=== PATIENT | female | born 1945 | race Two or more races ===

== ENCOUNTER 2022-05-30 07:08 | Day surgery (SDC) | payer OTHER ==
[~2022-05-30] VITALS: Ht 167.6 cm; Wt 58.1 kg
[~2022-05-30 07:08] MED LIST: ALBUAER3 IN; APIX5TAB PO; BUSP10TA31 PO; LEVO125T7 PO; LISI20TA28 PO; METO25TA5 PO; SIMV-8 PO; TRAZ-184 PO
[2022-05-30] MEDS ORDERED: fentaNYL CITRATE 100 MCG/2 ML VL IV ONE (07:45)
[2022-05-30] MEDS ORDERED: MIDAZOLAM HCL 2MG/2ML 2ml VIAL (1mg/ml) IV ONE (07:45)
[2022-05-30] MEDS ORDERED: MIDAZOLAM HCL 2MG/2ML 2ml VIAL (1mg/ml) ONE (08:14)
[2022-05-30] MEDS ORDERED: LIDOCAINE VISCOUS 2% 15ML UD ONE (08:14)
[2022-05-30] MEDS ORDERED: fentaNYL CITRATE 100 MCG/2 ML VL ONE (08:14)
[2022-05-30] MEDS: LIDOCAINE VISCOUS 2% 15ML UD MT PRN ×2 (08:17→08:45)
[2022-05-30 08:38] VITALS: BP 142/73
[2022-05-30 08:45] VITALS: BP 131/56
[2022-05-30 08:59] VITALS: BP 141/65
[2022-05-30 09:14] VITALS: BP 138/57
[2022-05-30 09:29] VITALS: BP 131/60
[2022-05-30 09:44] VITALS: BP 138/64
== END 2022-05-30 10:00 | disposition home or self-care (01) ==
LOC: CATH 07:08
PROVIDERS: ATTEND Internal Medicine Cardiovascular Disease
DX: I08.1 Rheumatic disorders of both mitral and tricuspid valves (principal); I31.39 Other pericardial effusion (noninflammatory); I70.0 Atherosclerosis of aorta; Z20.822 Contact with and (suspected) exposure to COVID-19
CPT/HCPCS: 93312; J2250; J3010; U0003; 99152

== ENCOUNTER 2022-06-03 06:57 | Day surgery (SDC) | payer OTHER ==
[~2022-06-03] VITALS: Ht 167.6 cm; Wt 58.1 kg
[2022-06-03] MEDS ORDERED: LIDOCAINE 2%HCL (LOCAL ANESTH.) INJ 20ML MDV ONE (07:33)
[2022-06-03] MEDS ORDERED: IOHEXOL 350 MG/ML 100ML IJ ONE (07:33)
[2022-06-03] MEDS ORDERED: SODIUM CHL 0.9% 0 ML ONE (07:50)
[2022-06-03] MEDS ORDERED: VERAPAMIL 2.5MG/ML INJ 2ML VIAL IV ONE (07:50)
[2022-06-03] MEDS ORDERED: fentaNYL CITRATE 100 MCG/2 ML VL ONE (07:50)
[2022-06-03] MEDS ORDERED: ANGIOMAX 250 MG VIAL IV ONE (07:50)
[2022-06-03] MEDS ORDERED: MIDAZOLAM HCL 2MG/2ML 2ml VIAL (1mg/ml) ONE (07:50)
[2022-06-03] MEDS ORDERED: HEPARIN SODIUM (PORCINE) 5000 UNITS/ML 1ML VIAL ONE (07:50)
[2022-06-03] MEDS ORDERED: diphenhdrAMINE HCL 50 MG/1 ML VL ONE (07:56)
[2022-06-03] MEDS ORDERED: FAMOTIDINE (10MG/ML) 2ML VL IV ONE (07:56)
[2022-06-03] MEDS ORDERED: methylPREDNISolone SOD SUCC 125 MG/2 ML VL ONE (07:56)
[2022-06-03] MEDS ORDERED: hydrALAZINE HCL 20 MG/ML VL ONE (08:37)
== END 2022-06-03 11:05 | disposition home or self-care (01) ==
LOC: CATH 06:57
PROVIDERS: ATTEND Internal Medicine Cardiovascular Disease
DX: R94.39 Abnormal result of other cardiovascular function study (principal); R07.89 Other chest pain; I25.10 Atherosclerotic heart disease of native coronary artery without angina pectoris; I48.91 Unspecified atrial fibrillation; F32.A Depression, unspecified; I10 Essential (primary) hypertension; E78.5 Hyperlipidemia, unspecified; E03.9 Hypothyroidism, unspecified; I73.9 Peripheral vascular disease, unspecified; I47.1 Supraventricular tachycardia; I35.0 Nonrheumatic aortic (valve) stenosis; Z79.899 Other long term (current) drug therapy; Z79.01 Long term (current) use of anticoagulants; Z98.890 Other specified postprocedural states
CPT/HCPCS: 93460; C1751; C1769; C1887; C1894; J0360; J1200; J1644; J2250; J2930; J3010; J3490; J7030; Q9967; 99152; 99153

== ENCOUNTER 2023-08-21 20:00 | Inpatient (IN) | payer OTHER ==
[~2023-08-21] VITALS: Ht 165.1 cm; Wt 60.0 kg
[~2023-08-21 20:00] MED LIST changes: -LISI20TA28 PO; +LISI20TA56 PO; -SIMV-8 PO; +SIMV20TA20 PO
[2023-08-21 22:03] LABS: Basophils # (auto) 0 10 ^3/uL (0-0.2); Basophils % (auto) 0.5 % (0.0-2.0); Eosinophils # (auto) 0 10 ^3/uL (0-0.8); Eosinophils % (auto) 0.7 % (0.0-7.0); Hematocrit 38.7 % (36.0-46.0); Hemoglobin 12.9 g/dL (12.2-16.2); Lymphocytes # (auto) 1.5 10 ^3/uL (0.4-5.4); Mean Corpuscular Hgb Conc. 33.2 g/dL (32.0-36.0); Mean Corpuscular Volume 84.5 fL (80.0-100.0); Monocytes # (auto) 0.7 10 ^3/uL (0-1.3); Monocytes % (auto) 11.1 % (0.0-12.0); Neutrophils # (auto) 3.9 10 ^3/uL (1.6-8.6); Neutrophils % (auto) 63.7 % (37.0-80.0); Nucleated Red Blood Cells % 0.1 %; Red Blood Cells 4.59 10^6/uL (4.0-5.20)
[2023-08-21 22:25] LABS: Alanine Aminotransferase 20 U/L (7-40); Albumin 4.2 g/dL (3.2-4.8); Alkaline Phosphatase 44 U/L (46-116); Anion Gap 8 (5-15); Aspartate Aminotransferase 15 U/L (13-40); Calcium 9.8 mg/dL (8.7-10.4); Carbon Dioxide 26 mmol/L (20-30); Chloride 102 mmol/L (98-107); Glucose 108 mg/dL (74-106); Lipase 39 U/L (12-53); Potassium 3.6 mmol/L (3.5-5.1); Sodium 136 mmol/L (136-145); Total Protein 6.9 g/dL (5.7-8.2)
[2023-08-21 22:27] LABS: BUN/Creatinine Ratio 6.4 (10.0-20.0); Blood Urea Nitrogen < 5 mg/dL (9-23)
[2023-08-21] MEDS: ONDANSETRON ODT 4 MG TAB PO ONE (22:50)
[2023-08-21 23:52] LABS: Urine Bacteria None Seen /hpf (None Seen)
[2023-08-22 00:01] LABS: Urine Blood Negative /uL (Negative); Urine Clarity Clear (Clear); Urine Color Light-Yellow (Yellow); Urine Protein, UAD Negative (Negative); Urine Specific Gravity 1.005 (1.001-1.035); Urine Urobilinogen Normal (Negative); Urine WBC <1 /hpf (0 - 5); Urine pH 6.5 (5.0-9.0)
[2023-08-22] MEDS ORDERED: ACETAMINOPHEN 325 MG TAB PO PRN (03:00)
[2023-08-22] MEDS ORDERED: ONDANSETRON HCL 4 MG/2 ML VIAL IV PRN (03:00)
[2023-08-22] MEDS ORDERED: MORPHINE SULFATE INJ 2 MG/ml SYRG IV PRN (03:00)
[2023-08-22] MEDS: MORPHINE SULFATE 4 MG/ML SYR/VIAL IV ONE (03:00)
[2023-08-22] MEDS ORDERED: NITROGLYCERIN 0.4 MG SL TAB SL PRN (03:00)
[2023-08-22] MEDS: ONDANSETRON HCL 4 MG/2 ML VIAL IV ONE (03:01)
[2023-08-22 03:13] VITALS: PULSE 116; RESP 21; O2SAT 92
[2023-08-22] MEDS: SODIUM CHLORIDE 0.9% 1,000 ML IV ONE (03:40)
[2023-08-22 04:33] LABS: Basophils # (auto) 0 10 ^3/uL (0-0.2); Basophils % (auto) 0.3 % (0.0-2.0); Eosinophils # (auto) 0 10 ^3/uL (0-0.8); Eosinophils % (auto) 0.7 % (0.0-7.0); Hematocrit 37.1 % (36.0-46.0); Hemoglobin 12.5 g/dL (12.2-16.2); Lymphocytes % (auto) 16.9 % (10.0-50.0); Mean Corpuscular Hemoglobin 28.8 pg (28.0-32.0); Mean Corpuscular Hgb Conc. 33.8 g/dL (32.0-36.0); Mean Corpuscular Volume 85.2 fL (80.0-100.0); Monocytes # (auto) 0.6 10 ^3/uL (0-1.3); Monocytes % (auto) 10.1 % (0.0-12.0); Neutrophils # (auto) 4.1 10 ^3/uL (1.6-8.6); Red Blood Cells 4.35 10^6/uL (4.0-5.20); Red Cell Distribution Width 14.3 % (11.8-14.3); White Blood Cell 5.7 10^3/uL (4.4-10.8)
[2023-08-22] MEDS: D5W/SOD CHLO 0.9% 1,000 ML IV ONE (04:39)
[2023-08-22 04:46] LABS: Chloride 102 mmol/L (98-107); Potassium 3.8 mmol/L (3.5-5.1); Sodium 137 mmol/L (136-145)
[2023-08-22 04:47] LABS: Anion Gap 8 (5-15); Carbon Dioxide 27 mmol/L (20-30)
[2023-08-22 04:48] LABS: Calcium 9.5 mg/dL (8.7-10.4)
[2023-08-22 04:52] LABS: Glucose 109 mg/dL (74-106)
[2023-08-22 05:10] LABS: BUN/Creatinine Ratio 7.1 (10.0-20.0); Blood Urea Nitrogen < 5 mg/dL (9-23)
[2023-08-22] MEDS ORDERED: AMIODARONE 450mg/250ml AE 250 ML IV SCH ×2 (05:15→11:15)
[2023-08-22] MEDS ORDERED: AMIODARONE BOLUS KIT 100 ML IV ONE (05:15)
[2023-08-22] MEDS: MORPHINE SULFATE INJ 2 MG/ml SYRG IV PRN (06:13)
[2023-08-22] MEDS: ENOXAPARIN SOD 40 MG/0.4 ML SYRINGE SC SCH (10:00)
[2023-08-22] MEDS: LEVOTHYROXINE SODIUM 100 MCG/5 ML INJ IV ONE (11:42)
[2023-08-22 13:03] LABS: INR 1.09 (0.9-1.15); Partial Thromboplastin Time 26.4 SEC (24.5-34.5); Prothrombin Time 11.5 sec (9.3-11.8)
[2023-08-22] MEDS: GASTROGRAFIN 120 ML SOL ONE (13:57)
[2023-08-22 19:29] VITALS: PULSE 88; RESP 12; O2SAT 96
[2023-08-23] VITALS (10 sets, daily range): BP systolic 98–149; BP diastolic 46–79; PULSE 67–130; RESP 16–18; TEMP 37; O2SAT 91–97
[2023-08-23 05:18] LABS: Basophils # (auto) 0 10 ^3/uL (0-0.2); Basophils % (auto) 0.7 % (0.0-2.0); Eosinophils # (auto) 0.1 10 ^3/uL (0-0.8); Eosinophils % (auto) 1.3 % (0.0-7.0); Hematocrit 35.1 % (36.0-46.0); Hemoglobin 11.6 g/dL (12.2-16.2); Lymphocytes # (auto) 1.2 10 ^3/uL (0.4-5.4); Lymphocytes % (auto) 21.5 % (10.0-50.0); Mean Corpuscular Hemoglobin 28.3 pg (28.0-32.0); Mean Corpuscular Volume 85.5 fL (80.0-100.0); Monocytes # (auto) 0.7 10 ^3/uL (0-1.3); Monocytes % (auto) 11.5 % (0.0-12.0); Neutrophils # (auto) 3.7 10 ^3/uL (1.6-8.6); Red Cell Distribution Width 14.6 % (11.8-14.3); White Blood Cell 5.8 10^3/uL (4.4-10.8)
[2023-08-23 05:23] LABS: Chloride 107 mmol/L (98-107); Potassium 3.6 mmol/L (3.5-5.1); Sodium 140 mmol/L (136-145)
[2023-08-23 05:24] LABS: Anion Gap 5 (5-15); Calcium 9.4 mg/dL (8.7-10.4); Carbon Dioxide 28 mmol/L (20-30)
[2023-08-23 05:29] LABS: BUN/Creatinine Ratio 7.2 (10.0-20.0); Blood Urea Nitrogen 5 mg/dL (9-23); Glucose 83 mg/dL (74-106)
[2023-08-23] MEDS: METOPROLOL TARTRATE 1MG/1ML-5ML VIAL IV PRN (08:16)
== END 2023-08-23 18:57 | disposition home or self-care (01) | DRG 389 ==
LOC: ER 20:00 → TELE 08-22 03:24 → TELE-EAST 08-22 22:02 → UNDODISIN 08-23 18:00
PROVIDERS: ADMIT Internal Medicine; ATTEND Internal Medicine
PROC: 0D9670Z Drainage of Stomach with Drainage Device, Via Natural or Artificial Opening (ICD-10-PCS; principal; 2023-08-22)
DX: K56.600 Partial intestinal obstruction, unspecified as to cause (principal); I48.20 Chronic atrial fibrillation, unspecified; K56.51 Intestinal adhesions [bands], with partial obstruction; I10 Essential (primary) hypertension; I25.10 Atherosclerotic heart disease of native coronary artery without angina pectoris; J45.909 Unspecified asthma, uncomplicated; E03.9 Hypothyroidism, unspecified; Z91.041 Radiographic dye allergy status; Z88.0 Allergy status to penicillin; Z88.2 Allergy status to sulfonamides; Z91.018 Allergy to other foods; Z90.49 Acquired absence of other specified parts of digestive tract; I25.2 Old myocardial infarction; Z79.01 Long term (current) use of anticoagulants; Z90.721 Acquired absence of ovaries, unilateral; Z90.5 Acquired absence of kidney
CPT/HCPCS: 36415; 71045; 74176; 74250; 80048; 80053; 81001; 83605; 83690; 85025; 85610; 85730; 93005; G0378; J2405; J3490

== ENCOUNTER 2023-08-24 14:59 | Inpatient (IN) | payer OTHER ==
[~2023-08-24] VITALS: Ht 165.1 cm; Wt 66.9 kg
[2023-08-24 16:28] LABS: Basophils # (auto) 0 10 ^3/uL (0-0.2); Basophils % (auto) 0.3 % (0.0-2.0); Eosinophils # (auto) 0 10 ^3/uL (0-0.8); Eosinophils % (auto) 0.2 % (0.0-7.0); Hematocrit 37.5 % (36.0-46.0); Hemoglobin 12.8 g/dL (12.2-16.2); Lymphocytes # (auto) 0.7 10 ^3/uL (0.4-5.4); Lymphocytes % (auto) 10.8 % (10.0-50.0); Mean Corpuscular Hemoglobin 28.4 pg (28.0-32.0); Mean Corpuscular Volume 83.3 fL (80.0-100.0); Monocytes # (auto) 0.6 10 ^3/uL (0-1.3); Monocytes % (auto) 8.1 % (0.0-12.0); Neutrophils # (auto) 5.5 10 ^3/uL (1.6-8.6); Neutrophils % (auto) 80.6 % (37.0-80.0); Red Cell Distribution Width 14.3 % (11.8-14.3); White Blood Cell 6.9 10^3/uL (4.4-10.8)
[2023-08-24 16:35] LABS: Alanine Aminotransferase 11 U/L (7-40); Albumin 4.3 g/dL (3.2-4.8); Alkaline Phosphatase 41 U/L (46-116); Anion Gap 7 (5-15); Aspartate Aminotransferase 23 U/L (13-40); BUN/Creatinine Ratio 13.4 (10.0-20.0); Bilirubin, Total 1.1 mg/dL (0.2-1.0); Blood Urea Nitrogen 11 mg/dL (9-23); Calcium 10.1 mg/dL (8.5-10.1); Carbon Dioxide 29 mmol/L (20-30); Chloride 98 mmol/L (98-107); Glucose 115 mg/dL (74-106); Potassium 3.6 mmol/L (3.5-5.1)
[2023-08-24 16:36] LABS: Total Protein 7.1 g/dL (5.7-8.2)
[2023-08-24 16:39] LABS: Sodium 134 mmol/L (136-145)
[2023-08-24 17:25] LABS: Urine Bacteria None Seen /hpf (None Seen)
[2023-08-24 17:31] LABS: Urine Blood Negative /uL (Negative); Urine Clarity Turbid (Clear); Urine Color Yellow (Yellow); Urine Protein, UAD TRACE (Negative); Urine Specific Gravity 1.015 (1.001-1.035); Urine Urobilinogen 2 mg/dL (Negative); Urine WBC 1 /hpf (0 - 5); Urine pH 8.5 (5.0-9.0)
[2023-08-24 22:57] LABS: INR 1.13 (0.9-1.15); Prothrombin Time 11.9 sec (9.3-11.8)
[2023-08-25] MEDS: HYDROmorphone HCL 2 MG/ML VL/or syr IM ONE (00:18)
[2023-08-25] MEDS: ONDANSETRON ODT 4 MG TAB PO ONE (00:18)
[2023-08-25] MEDS: ONDANSETRON HCL 4 MG/2 ML VIAL IV PRN (00:26)
[2023-08-25] MEDS: MORPHINE SULFATE INJ 2 MG/ml SYRG IV PRN (00:26)
[2023-08-25] MEDS: cefTRIAXone 1GM/50ML D5W 50 ML IV ONE (00:28)
[2023-08-25] MEDS: metroNIDAZOLE 500MG/100ML 100 ML IV SCH (00:28)
[2023-08-25 00:59] VITALS: PULSE 93; O2SAT 92
[2023-08-25] MEDS: D5W/SOD CHLO 0.9% 1,000 ML IV SCH (02:05)
[2023-08-25] MEDS: dilTIAZem 25 MG/5 ML VIAL IV ONE (03:08)
[2023-08-25 05:00] LABS: Basophils # (auto) 0 10 ^3/uL (0-0.2); Basophils % (auto) 0.4 % (0.0-2.0); Eosinophils # (auto) 0 10 ^3/uL (0-0.8); Eosinophils % (auto) 0.4 % (0.0-7.0); Hematocrit 38.6 % (36.0-46.0); Hemoglobin 12.9 g/dL (12.2-16.2); Lymphocytes # (auto) 1.7 10 ^3/uL (0.4-5.4); Lymphocytes % (auto) 23.4 % (10.0-50.0); Mean Corpuscular Hemoglobin 27.9 pg (28.0-32.0); Mean Corpuscular Hgb Conc. 33.5 g/dL (32.0-36.0); Mean Corpuscular Volume 83.2 fL (80.0-100.0); Monocytes # (auto) 0.9 10 ^3/uL (0-1.3); Monocytes % (auto) 11.9 % (0.0-12.0); Neutrophils # (auto) 4.7 10 ^3/uL (1.6-8.6); Neutrophils % (auto) 63.9 % (37.0-80.0); Nucleated Red Blood Cells % 0.1 %; Red Blood Cells 4.64 10^6/uL (4.0-5.20); Red Cell Distribution Width 14.2 % (11.8-14.3); White Blood Cell 7.3 10^3/uL (4.4-10.8)
[2023-08-25 05:10] LABS: Chloride 101 mmol/L (98-107); Potassium 3.3 mmol/L (3.5-5.1); Sodium 136 mmol/L (136-145)
[2023-08-25 05:11] LABS: Anion Gap 10 (5-15); Calcium 9.9 mg/dL (8.7-10.4); Carbon Dioxide 25 mmol/L (20-30)
[2023-08-25] MEDS: AMIODARONE BOLUS KIT 100 ML IV ONE (05:14)
[2023-08-25 05:16] LABS: BUN/Creatinine Ratio 11.4 (10.0-20.0); Blood Urea Nitrogen 8 mg/dL (9-23); Glucose 126 mg/dL (74-106)
[2023-08-25] MEDS: AMIODARONE 450mg/250ml AE 250 ML IV SCH ×2 (05:45→12:26)
[2023-08-25 06:04] VITALS: BP 120/73; PULSE 123; RESP 18; O2SAT 95
[2023-08-25] MEDS: ENOXAPARIN SOD 100 MG/1 ML SYRINGE SC SCH (06:11)
[2023-08-25] MEDS ORDERED: ENOXAPARIN SOD 40 MG/0.4 ML SYRINGE SC SCH (10:00)
[2023-08-25] MEDS: PANTOPRAZOLE 40 MG/10 ML VIAL INJ IV SCH (10:48)
[2023-08-25] MEDS: cefTRIAXone 1GM/50ML D5W 50 ML IV SCH (10:48)
[2023-08-25 11:41] VITALS: BP 142/88; PULSE 96; RESP 16; TEMP 98.1; O2SAT 96
[2023-08-25 16:48] VITALS: BP 171/89; PULSE 100; RESP 16; TEMP 97.9; O2SAT 96
[2023-08-25 19:30] VITALS: PULSE 90; RESP 17; O2SAT 97
[2023-08-25 21:00] VITALS: BP 158/76; PULSE 102; RESP 18; TEMP 98; O2SAT 96
[2023-08-26] VITALS (8 sets, daily range): BP systolic 103–177; BP diastolic 66–85; PULSE 64–135; RESP 16–20; TEMP 97.7–98.5; O2SAT 94–96
[2023-08-26 06:55] LABS: Chloride 105 mmol/L (98-107); Potassium 2.8 mmol/L (3.5-5.1); Sodium 140 mmol/L (136-145)
[2023-08-26 06:56] LABS: Anion Gap 9 (5-15); Carbon Dioxide 26 mmol/L (20-30)
[2023-08-26 06:57] LABS: Calcium 9.1 mg/dL (8.5-10.1)
[2023-08-26 07:01] LABS: Glucose 110 mg/dL (74-106)
[2023-08-26 07:02] LABS: Basophils # (auto) 0 10 ^3/uL (0-0.2); Basophils % (auto) 0.8 % (0.0-2.0); Eosinophils # (auto) 0.1 10 ^3/uL (0-0.8); Eosinophils % (auto) 2.5 % (0.0-7.0); Hematocrit 35.2 % (36.0-46.0); Hemoglobin 11.9 g/dL (12.2-16.2); Lymphocytes # (auto) 1.1 10 ^3/uL (0.4-5.4); Lymphocytes % (auto) 26.5 % (10.0-50.0); Mean Corpuscular Hemoglobin 28.6 pg (28.0-32.0); Mean Corpuscular Volume 84.1 fL (80.0-100.0); Monocytes # (auto) 0.5 10 ^3/uL (0-1.3); Monocytes % (auto) 11.4 % (0.0-12.0); Neutrophils # (auto) 2.5 10 ^3/uL (1.6-8.6); Neutrophils % (auto) 58.8 % (37.0-80.0); Red Blood Cells 4.18 10^6/uL (4.0-5.20); Red Cell Distribution Width 14.3 % (11.8-14.3); White Blood Cell 4.2 10^3/uL (4.4-10.8)
[2023-08-26 07:09] LABS: BUN/Creatinine Ratio 7.8 (10.0-20.0); Blood Urea Nitrogen < 5 mg/dL (9-23)
[2023-08-26] MEDS ORDERED: GASTROGRAFIN 120 ML SOL ONE (08:48)
[2023-08-26] MEDS: hydrALAZINE HCL 20 MG/ML VL IV PRN (12:55)
[2023-08-26] MEDS: ENOXAPARIN SOD 60 MG/0.6 ML SYRINGE SC SCH (21:11)
[2023-08-26] MEDS: ACETAMINOPHEN 325 MG TAB PO PRN (21:19)
[2023-08-27] VITALS (7 sets, daily range): BP systolic 143–167; BP diastolic 70–86; PULSE 70–96; RESP 15–18; TEMP 36.6; O2SAT 93–97
[2023-08-27] MEDS: traZODone HCL 50 MG TAB PO PRN (01:12)
[2023-08-27] MEDS: LEVOTHYROXINE SODIUM 50 MCG TAB PO SCH (06:22)
[2023-08-27] MEDS: POTASSIUM CHL 20 Meq TABLET PO ONE (08:00)
[2023-08-27] MEDS: CARVEDILOL 3.125 MG TAB PO SCH (09:39)
[2023-08-27] MEDS: AMIODARONE HCL 200 MG TAB PO SCH (09:40)
[2023-08-27] MEDS: busPIRone HCL 10 MG TAB PO SCH (09:40)
[2023-08-27] MEDS ORDERED: METOPROLOL TARTRATE 25 MG TAB PO SCH ×2 (10:00→14:00)
[2023-08-27] MEDS ORDERED: SOD CHL 0.9%/ KCL 20MEQ 1,000 ML IV SCH (11:15)
[2023-08-27] MEDS: POTASSIUM EFFERVESENT TAB 25 MEQ PO ONE (11:15)
[2023-08-27] MEDS: POTASSIUM CHL 20MEQ/100ML 100 ML IV ONE (13:13)
== END 2023-08-27 18:30 | disposition home or self-care (01) | DRG 389 ==
LOC: ER 14:59 → TELE 21:41 → TELE-WESTW 08-25 05:45
PROVIDERS: ADMIT Nurse Practitioner Family; ATTEND Nurse Practitioner Family
PROC: 0D9670Z Drainage of Stomach with Drainage Device, Via Natural or Artificial Opening (ICD-10-PCS; principal; 2023-08-27)
DX: K56.609 Unspecified intestinal obstruction, unspecified as to partial versus complete obstruction (principal); I42.8 Other cardiomyopathies; I47.10 Supraventricular tachycardia, unspecified; I48.92 Unspecified atrial flutter; I10 Essential (primary) hypertension; I25.10 Atherosclerotic heart disease of native coronary artery without angina pectoris; I48.91 Unspecified atrial fibrillation; J45.909 Unspecified asthma, uncomplicated; E03.9 Hypothyroidism, unspecified; E78.5 Hyperlipidemia, unspecified; I73.9 Peripheral vascular disease, unspecified; F41.1 Generalized anxiety disorder; F51.04 Psychophysiologic insomnia; F03.90 Unspecified dementia, unspecified severity, without behavioral disturbance, psychotic disturbance, mood disturbance, and anxiety; F32.A Depression, unspecified; I34.0 Nonrheumatic mitral (valve) insufficiency; Z79.01 Long term (current) use of anticoagulants; Z91.041 Radiographic dye allergy status; Z88.0 Allergy status to penicillin; Z88.2 Allergy status to sulfonamides; Z88.8 Allergy status to other drugs, medicaments and biological substances; Z91.018 Allergy to other foods; Z79.2 Long term (current) use of antibiotics; Z79.899 Other long term (current) drug therapy; Z80.3 Family history of malignant neoplasm of breast; Z87.891 Personal history of nicotine dependence
CPT/HCPCS: 36415; 74018; 74250; 80048; 80053; 81001; 83605; 85025; 85610; 87081; 93005; 93306; C9113; G0378; J2405; J3480; J3490; J7042